=== PATIENT | male | born 1960 | race Caucasian/White ===

== ENCOUNTER 2018-06-03 22:01 | Emergency (ER) | payer MEDICAID ==
[2018-06-04] MEDS: FAMOTIDINE 20 MG TAB PO (00:36)
[2018-06-04] MEDS: DIPHENHYDRAMINE 50 MG CAP PO (00:36)
[2018-06-04] MEDS: DEXAMETHASONE 4 MG TAB PO (00:45)
== END 2018-06-04 02:12 | disposition home or self-care (01) ==
LOC: E/R 22:01
DX: T65.6X1A Toxic effect of paints and dyes, not elsewhere classified, accidental (unintentional), initial encounter (principal); R40.2252 Coma scale, best verbal response, oriented, at arrival to emergency department; R40.2362 Coma scale, best motor response, obeys commands, at arrival to emergency department; R40.2142 Coma scale, eyes open, spontaneous, at arrival to emergency department
CPT/HCPCS: 99283; Z7502

== ENCOUNTER 2018-06-13 05:01 | Emergency (ER) | payer MEDICAID ==
[2018-06-13] MEDS: FAMOTIDINE 20 MG INJ IV (05:45)
[2018-06-13] MEDS: DIPHENHYDRAMINE 50 MG INJ IV (05:45)
[2018-06-13] MEDS: DEXAMETHASONE 10 MG/ML 1 ML INJ IV (05:45)
== END 2018-06-13 06:54 | disposition home or self-care (01) ==
LOC: E/R 05:01
DX: L24.3 Irritant contact dermatitis due to cosmetics (principal); E11.9 Type 2 diabetes mellitus without complications; Z79.84 Long term (current) use of oral hypoglycemic drugs
CPT/HCPCS: 96374; 96375; 99284-25

== ENCOUNTER 2018-06-15 14:19 | Emergency (ER) | payer MEDICAID ==
[2018-06-15] MEDS: DEXAMETHASONE 10 MG/ML 1 ML INJ IM (19:27)
== END 2018-06-15 19:35 | disposition home or self-care (01) ==
LOC: FTE 14:19
DX: R21 Rash and other nonspecific skin eruption (principal)
CPT/HCPCS: 96372; 99284-25